=== PATIENT | female | born 1990 | race African-American/Black ===

== ENCOUNTER 2017-12-20 11:55 | Emergency (ER) | payer MEDICAID ==
[~2017-12-20] VITALS: Ht 165.1 cm; Wt 147.0 kg
[2017-12-20 13:23] LABS: BASOPHILS % 0.4 % (0.0-2.0); EOSINOPHILS % 6.3 % (0.0-5.0); HEMOGLOBIN. 13.1 g/dL (12.0-16.0); LYMPHOCYTES % 30.9 % (20.0-50.0); MEAN CORPUSCULAR HEMOGLOBIN 30.4 pg (28.0-32.0); MEAN CORPUSCULAR VOLUME 88.4 fL (81.0-99.0); MEAN PLATELET VOLUME 8.1 fl (7.4-10.4); MONOCYTES % 5.1 % (2.0-8.0); NEUTROPHILS % 57.3 % (40.0-76.0); PLATELET 201 x1000/uL (130-400); RED CELL DISTRIBUTION WIDTH 13.1 % (11.6-14.6)
[2017-12-20 13:27] LABS: CHLORIDE 107 mEq/L (98-107)
[2017-12-20 13:36] LABS: KETONES URINE TRACE (NEGATIVE); LEUKOCYTE ESTERASE URINE 1+ (NEGATIVE); NITRITE URINE NEGATIVE (NEGATIVE); OCCULT BLOOD URINE 3+ (NEGATIVE); PROTEIN URINE 2+ (NEGATIVE); SPECIFIC GRAVITY URINE 1.027 (1.005-1.030); UROBILINOGEN URINE 0.2 E.U./dL (0.2-1.0)
[2017-12-20 13:42] LABS: CLARITY URINE CLOUDY (CLEAR); COLOR URINE BLOODY (YELLOW)
[2017-12-20 13:51] LABS: B-HCG QUANTITATIVE 2757 mIU/mL (<3)
[2017-12-20 15:33] VITALS: BP 128/68
[2017-12-21] MEDS ORDERED: BECL10.62 IH (12:56)
[2017-12-21] MEDS ORDERED: PNV1TABL76 PO (12:56)
[2017-12-21] MEDS ORDERED: ALBU18HF2 IH (12:56)
[2017-12-21] MEDS ORDERED: BACL-141 PO (12:56)
[2017-12-21] MEDS ORDERED: NITR100C PO (12:56)
== END 2017-12-20 15:39 | disposition home or self-care (01) ==
LOC: ER 13:25
DX: O36.4XX1 Maternal care for intrauterine death, fetus 1 (principal); O23.41 Unspecified infection of urinary tract in pregnancy, first trimester; O99.334 Smoking (tobacco) complicating childbirth; N39.0 Urinary tract infection, site not specified; Z3A.09 9 weeks gestation of pregnancy
CPT/HCPCS: 36415; 76801; 80053; 81003; 84702; 85025; 86850; 86900; 87086; 99285

== ENCOUNTER 2017-12-21 07:31 | Inpatient (IN) | payer MEDICAID ==
[~2017-12-21] VITALS: Ht 165.1 cm; Wt 146.5 kg
[2017-12-21] MEDS ORDERED: SODIUM CHLORIDE 0.9% 1,000 ML IV ONE ×2 (07:41→10:10)
[2017-12-21] MEDS ORDERED: MORPHINE SULFATE 4 MG/ML CPJ (NOT FOR IM USE) IV STA (08:05)
[2017-12-21] MEDS ORDERED: ONDANSETRON HCL 4MG/2ML VIAL IV STA (08:05)
[2017-12-21 08:49] LABS: BASOPHILS % 0.3 % (0.0-2.0); CHLORIDE 111 mEq/L (98-107); EOSINOPHILS % 0.3 % (0.0-5.0); HEMATOCRIT. 29.9 % (36.0-48.0); HEMOGLOBIN. 10.3 g/dL (12.0-16.0); LYMPHOCYTES % 9.6 % (20.0-50.0); MEAN CORPUSCULAR HEMOGLOBIN 30.9 pg (28.0-32.0); MEAN CORPUSCULAR VOLUME 89.6 fL (81.0-99.0); MEAN PLATELET VOLUME 8.4 fl (7.4-10.4); MONOCYTES % 4.2 % (2.0-8.0); NEUTROPHILS % 85.6 % (40.0-76.0); PLATELET 179 x1000/uL (130-400); RED BLOOD CELL COUNT 3.34 mill/uL (4.2-5.4); RED CELL DISTRIBUTION WIDTH 12.9 % (11.6-14.6)
[2017-12-21 08:54] LABS: HCG SCREEN POSITIVE
[2017-12-21 09:24] LABS: B-HCG QUANTITATIVE 1590 mIU/mL (<3)
[2017-12-21 12:00] VITALS: BP 99/42
[2017-12-21 12:25] VITALS: BP 139/49
[2017-12-21] MEDS ORDERED: PNV1TABL76 PO (12:56)
[2017-12-21] MEDS ORDERED: ALBU18HF2 IH (12:56)
[2017-12-21] MEDS ORDERED: NITR100C PO (12:56)
[2017-12-21] MEDS ORDERED: BACL-141 PO (12:56)
[2017-12-21] MEDS ORDERED: BECL10.62 IH (12:56)
[2017-12-21 16:00] VITALS: BP 107/61
[2017-12-21] MEDS ORDERED: HYDROMORPHONE HCL/PF 2MG/ML CPJ IM PRN (16:15)
[2017-12-21] MEDS ORDERED: ONDANSETRON HCL 4MG/2ML VIAL IV PRN ×3 (16:15→21:15)
[2017-12-21] MEDS ORDERED: KETOROLAC 60MG/2ML VIAL IM NR ×2 (17:00→18:00)
[2017-12-21] MEDS: DEXT 5%/LACTATED RINGERS 1,000 ML IV SCH (17:01)
[2017-12-21 20:00] VITALS: BP 106/67
[2017-12-21 20:36] LABS: BASOPHILS % 0.3 % (0.0-2.0); EOSINOPHILS % 1.6 % (0.0-5.0); HEMATOCRIT. 26.6 % (36.0-48.0); HEMOGLOBIN. 9.2 g/dL (12.0-16.0); LYMPHOCYTES % 31.3 % (20.0-50.0); MEAN CORPUSCULAR HEMOGLOBIN 30.9 pg (28.0-32.0); MEAN CORPUSCULAR VOLUME 89.6 fL (81.0-99.0); NEUTROPHILS % 60.8 % (40.0-76.0); PLATELET 169 x1000/uL (130-400); RED BLOOD CELL COUNT 2.97 mill/uL (4.2-5.4); RED CELL DISTRIBUTION WIDTH 13.3 % (11.6-14.6)
[2017-12-21] MEDS ORDERED: FENTANYL CITRATE/PF 50MCG/ML 2ML VIAL ONE (20:40)
[2017-12-21] MEDS ORDERED: MIDAZOLAM HCL 2 MG/2 ML VIAL ONE (20:40)
[2017-12-21] MEDS ORDERED: LIDOCAINE HCL/PF 1% 10 MG/ML 30ML VIAL ONE (20:41)
[2017-12-21] MEDS ORDERED: METRONIDAZOLE 500 MG PREMIX 100 ML IV ONE (20:51)
[2017-12-21] MEDS ORDERED: HYDROMORPHONE HCL/PF 2MG/ML CPJ IV NR (21:00)
[2017-12-21] MEDS ORDERED: LABETALOL 5MG/ML SYR 20 MG/4 ML SYRINGE IV PRN (21:15)
[2017-12-21] MEDS ORDERED: MEPERIDINE HCL/PF 25MG/ML CPJ IV PRN (21:15)
[2017-12-21] MEDS ORDERED: HYDROMORPHONE HCL/PF 2MG/ML CPJ IV PRN (21:15)
[2017-12-21] MEDS: DEXT 5%/0.45% NACL KCL 20MEQ/L 1,000 ML IV SCH (23:19)
[2017-12-21 23:32] LABS: CLARITY URINE TURBID (CLEAR); COLOR URINE ORANGE (YELLOW); KETONES URINE NEGATIVE (NEGATIVE); LEUKOCYTE ESTERASE URINE 1+ (NEGATIVE); NITRITE URINE NEGATIVE (NEGATIVE); OCCULT BLOOD URINE 3+ (NEGATIVE); PROTEIN URINE 2+ (NEGATIVE); SPECIFIC GRAVITY URINE 1.027 (1.005-1.030); UROBILINOGEN URINE 0.2 E.U./dL (0.2-1.0)
[2017-12-22] VITALS: BP 107/50
[2017-12-22 02:06] LABS: BASOPHILS % 0.4 % (0.0-2.0); EOSINOPHILS % 2.7 % (0.0-5.0); HEMATOCRIT. 22.6 % (36.0-48.0); HEMOGLOBIN. 7.9 g/dL (12.0-16.0); LYMPHOCYTES % 35.8 % (20.0-50.0); MEAN CORPUSCULAR HEMOGLOBIN 31.2 pg (28.0-32.0); MEAN CORPUSCULAR VOLUME 89.6 fL (81.0-99.0); MEAN PLATELET VOLUME 8.3 fl (7.4-10.4); MONOCYTES % 6.5 % (2.0-8.0); NEUTROPHILS % 54.6 % (40.0-76.0); PLATELET 152 x1000/uL (130-400); RED BLOOD CELL COUNT 2.53 mill/uL (4.2-5.4)
[2017-12-22 04:00] VITALS: BP 99/56
[2017-12-22] MEDS: HYDROCODONE/ACETAMINOPHEN 5/325MG TABLET PO PRN ×2 (04:27→09:59)
[2017-12-22 07:27] LABS: BASOPHILS % 0.5 % (0.0-2.0); EOSINOPHILS % 3.6 % (0.0-5.0); HEMATOCRIT. 22.6 % (36.0-48.0); HEMOGLOBIN. 7.8 g/dL (12.0-16.0); LYMPHOCYTES % 34.2 % (20.0-50.0); MEAN CORPUSCULAR VOLUME 89.2 fL (81.0-99.0); MEAN PLATELET VOLUME 8.8 fl (7.4-10.4); MONOCYTES % 5.7 % (2.0-8.0); PLATELET 145 x1000/uL (130-400); RED BLOOD CELL COUNT 2.53 mill/uL (4.2-5.4); RED CELL DISTRIBUTION WIDTH 12.8 % (11.6-14.6)
[2017-12-22 08:00] VITALS: BP 100/57
[2017-12-22] MEDS: DEXT 5%/0.45% NACL KCL 20MEQ/L 1,000 ML IV SCH (08:00)
[2017-12-22] MEDS: DEXT 5%/LACTATED RINGERS 1,000 ML IV SCH (08:15)
[2017-12-22] MEDS ORDERED: MULT-1146 PO (09:36)
[2017-12-22] MEDS ORDERED: FERR-71 PO (09:38)
[2017-12-22] MEDS ORDERED: TYLENOL #3 PO (09:43)
[2017-12-22] MEDS ORDERED: NORGESTREL PO (09:44)
[2017-12-22] MEDS ORDERED: ETHINYL ESTRADIOL PO (09:44)
[2017-12-22 09:45] VITALS: BP 100/57
[2017-12-22 09:59] VITALS: BP 100/57
== END 2017-12-22 11:28 | disposition home or self-care (01) | DRG 544 ==
LOC: ER 07:41 → 8WST 10:10 → ENRESERV 11:13
PROVIDERS: ADMIT Specialist; ATTEND Specialist
PROC: 10D17ZZ Extraction of Products of Conception, Retained, Via Natural or Artificial Opening (ICD-10-PCS; principal; 2017-12-21 20:00)
DX: O03.4 Incomplete spontaneous abortion without complication (principal); Z68.43 Body mass index [BMI] 50.0-59.9, adult; E66.9 Obesity, unspecified; D64.9 Anemia, unspecified; F17.210 Nicotine dependence, cigarettes, uncomplicated; F31.9 Bipolar disorder, unspecified; J45.909 Unspecified asthma, uncomplicated; O99.011 Anemia complicating pregnancy, first trimester; O99.511 Diseases of the respiratory system complicating pregnancy, first trimester; O99.341 Other mental disorders complicating pregnancy, first trimester; O99.211 Obesity complicating pregnancy, first trimester; O99.331 Smoking (tobacco) complicating pregnancy, first trimester; Z79.899 Other long term (current) drug therapy; Z88.8 Allergy status to other drugs, medicaments and biological substances; Z3A.13 13 weeks gestation of pregnancy
CPT/HCPCS: 36415; 76830; 76856; 80053; 81003; 84702; 84703; 85025; 86850; 86900; 87086; 88305; 96374; 96375; 99291; J1885; J2250; J2270; J2405; J3010; J3490; J7030; J7121